=== PATIENT | male | born 1975 | race Caucasian/White ===

== ENCOUNTER 2017-07-23 00:41 | Emergency (ER) | payer OTHER ==
[~2017-07-23] VITALS: Ht 177.8 cm; Wt 103.4 kg
[2017-07-23 00:55] VITALS: Ht 177.8 cm; Wt 103.4 kg
[2017-07-23 02:45] VITALS: BP 173/96
== END 2017-07-23 02:45 | disposition home or self-care (01) ==
LOC: ED 00:41
DX: S39.012A Strain of muscle, fascia and tendon of lower back, initial encounter (principal); E11.9 Type 2 diabetes mellitus without complications; X58.XXXA Exposure to other specified factors, initial encounter; Y93.89 Activity, other specified; Y92.89 Other specified places as the place of occurrence of the external cause; Y99.8 Other external cause status
CPT/HCPCS: J2270

== ENCOUNTER 2017-08-01 00:25 | Emergency (ER) | payer OTHER ==
[~2017-08-01] VITALS: Ht 177.8 cm; Wt 101.6 kg
[2017-08-01 00:35] VITALS: Ht 177.8 cm; Wt 101.6 kg
[2017-08-01 03:31] LABS: UA SPECIFIC GRAVITY 1.025 (1.005-1.035); microscopic required? YES; urine erythrocyte 2+ (NEGATIVE)
[2017-08-01 04:10] VITALS: BP 162/103
== END 2017-08-01 04:10 | disposition home or self-care (01) ==
LOC: ED 00:25
PROVIDERS: Emergency Medicine
DX: M54.5 Low back pain (principal); G62.9 Polyneuropathy, unspecified
CPT/HCPCS: J2270; Q0092; Q0162